=== PATIENT | female | born 1960 | race Caucasian/White ===

== ENCOUNTER 2016-11-28 09:05 | Day surgery (SDC) | payer OTHER ==
--- NOTE | ~2016-11-28 | EGD ---
EGD REPORT [facility] [address] [place] [address] NAME: VANESA ZAMAN : [birth year] STATUS : REG [facility]#: [id number] AGE: 56 ADM/REG DATE : 11/28/16 MR#: [id number] REPORT SERV DATE: 11/28/16 DICTATED BY: KENDELL MERA DATE: 11/28/16 REPORT STATUS : Draft TRANSCRIBED BY: [facility] DATE: 11/28/16 [facility] Patient Name: Vanesa Zaman Date of : 1960 Attending MD: KENDELL MERA MD Procedure Date No Time: 11/28/2016 Procedure: Colonoscopy Indications: Screening for colorectal malignant neoplasm Referring MD: RICHY FERGUSON Medicines: Propofol per Anesthesia Complications: No immediate complications. Procedure: Pre-Anesthesia Assessment: - ASA Grade Assessment: II - A patient with mild systemic disease. After I obtained informed consent, the scope was passed under direct vision. Throughout the procedure, the patient's blood pressure, pulse, and oxygen saturations were monitored continuously. The PCF [id number] was introduced through the anus and advanced to 5 cm into the ileum. The colonoscopy was performed without difficulty. The patient tolerated the procedure well. The quality of the bowel preparation was excellent. Scope withdrawal time was 8 minutes. Findings: The terminal ileum appeared normal. A few medium-mouthed diverticula were found in the sigmoid colon. The retroflexed view of the distal rectum and anal verge was normal and showed no anal or rectal abnormalities. Impression: - The examined portion of the ileum was normal. - Diverticulosis in the sigmoid colon. Recommendation: - The patient will be observed post-procedure, until all discharge criteria are met. - Discharge patient to home. - Return to previous diet today. - Repeat colonoscopy in 10 years for screening purposes. - Continue present medications. - The findings and recommendations were discussed with the patient and their designated guardian. - After the procedure, if you experience any pain in abdomen or chest,shortness of breath,fever,chills,blood in stool,rectal bleeding,vomiting of any material,nausea,black stools or weakness or dizziness, EGD REPORT [address] [address] NAME: VANESA ZAMAN : [birth year] STATUS : REG [facility]#: [id number] AGE: 56 ADM/REG DATE : 11/28/16 MR#: [id number] REPORT SERV DATE: 11/28/16 DICTATED BY: KENDELL MERA DATE: 11/28/16 REPORT STATUS : Draft TRANSCRIBED BY: [employer] DATE: 11/28/16 GO TO THE EMERGENCY IMMEDIATELY!!!!!!!!! Procedure Code(s): --- Professional --- 83776, Colonoscopy, flexible, proximal to splenic flexure; diagnostic, with or without collection of specimen(s) by brushing or washing, with or without colon decompression (separate procedure) Diagnosis Code(s): --- Professional --- K57.30, Diverticulosis of large intestine without perforation or abscess without bleeding Z12.11, Encounter for screening for malignant neoplasm of colon CPT copyright 2013 [employer]. All rights reserved. The codes documented in this report are preliminary and upon bulk clerk review may be revised to meet current compliance requirements. Attending Participation: I personally performed the entire procedure. Kendell Mera MD KENDELL MERA MD 11/28/2016 10:34 AM This report has been signed electronically. Number of Addenda: 0 Note Initiated On: 11/28/2016 9:58 AM Scope Withdrawal Time 0 hours 9 minutes 33 seconds [id number] [place] [id number]
[~2016-11-28 09:05] MED LIST: NEXIUM20 M1 PO; SINGULAIR1 PO; SYN112 PO
== END 2016-11-28 23:59 | disposition home or self-care (01) ==
LOC: DMU 09:05
PROVIDERS: Internal Medicine Gastroenterology
PROC: 0DJD8ZZ Inspection of Lower Intestinal Tract, Via Natural or Artificial Opening Endoscopic (ICD-10-PCS; principal; 2016-11-28 10:30)
DX: Z12.11 Encounter for screening for malignant neoplasm of colon (principal); E03.9 Hypothyroidism, unspecified; K57.30 Diverticulosis of large intestine without perforation or abscess without bleeding; Z87.891 Personal history of nicotine dependence; K21.9 Gastro-esophageal reflux disease without esophagitis; Z90.710 Acquired absence of both cervix and uterus